=== PATIENT | female | born 1930 | race Caucasian/White ===

== ENCOUNTER 2022-01-26 15:58 | Inpatient (IN) | payer MEDICARE, OTHER ==
[~2022-01-26] VITALS: Ht 172.7 cm; Wt 66.7 kg
--- NOTE | 2022-01-26 16:19 | NUR ---
VICENTE LYNN TRIPPED ON CARPET AT [employer], C/O PAIN IN LEFT GROIN AREA UPPER FEMUR AREA AT THIS TIME SCALE OF 8 OUT OF 10
--- NOTE | 2022-01-26 16:22 | NUR ---
IV SITE L AC PATENT FLUSHING WELL INTACT
[2022-01-26] MEDS ORDERED: IBUPROFEN 600 MG TABLET ONE (16:29)
[2022-01-26] MEDS ORDERED: IBUPROFEN 600 MG TABLET PO ONE (16:30)
--- NOTE | 2022-01-26 16:31 | NUR ---
SWALLOWING WELL NO ASPIRATION NOTED
[2022-01-26] MEDS ORDERED: IV NS 0.9% 1,000 ML BAG IV ONE (19:00)
[2022-01-26 19:11] LABS: CALCIUM, SERUM 8.7 mg/dL (8.5-10.1); CREATININE 1.2 mg/dL (0.6-1.3); POTASSIUM 3.7 mmol/L (3.5-5.1)
--- NOTE | 2022-01-26 19:12 | NUR ---
CALLED [facility] [phone] [address] KATE[address]
--- NOTE | 2022-01-26 19:56 | NUR ---
COVID ANTIGEN AND MRSA SWAB COLLECTED AND SENT TO LAB
[2022-01-26] MEDS ORDERED: IOHEXOL-350 100 ML VIAL IV ONE (20:13)
[2022-01-26] MEDS ORDERED: CT SWABBABLE VALVE TRANS SET 1 EA INFUS.SET MC ONE (20:13)
[2022-01-26] MEDS ORDERED: IV NS 0.9% 250 ML IV ONE (20:13)
[2022-01-26 20:18] LABS: BASOPHILS % (AUTO) 0.2 % (0.0-2.0); EOSINOPHILS % (AUTO) 0.5 % (0.0-6.0); HEMATOCRIT 36 % (33-45); HEMOGLOBIN 11.8 g/dL (11.5-14.8); LYMPHOCYTES # (AUTO) 0.9 K/uL (0.8-4.8); MEAN CORPUSCULAR HGB CONC 33 g/dl (31.0-36.0); MEAN CORPUSCULAR VOLUME 92 fL (82-100); MONOCYTES # (AUTO) 0.5 K/uL (0.1-1.30); MONOCYTES % (AUTO) 5.7 % (2.0-12.0); NEUTROPHILS # (AUTO) 6.9 K/uL (1.8-8.9); NEUTROPHILS % (AUTO) 82.6 % (43.0-81.0); PLATELET COUNT (AUTO) 173 K/uL (150-450); RED BLOOD CELL COUNT(AUTO) 3.91 MIL/uL (4.0-5.2); WHITE BLOOD COUNT (AUTO) 8.4 K/uL (4.3-11.0)
[2022-01-26] MEDS ORDERED: ONDANSETRON HCL/PF - ER 4 MG/2 ML VIAL IV ONE (20:30)
--- NOTE | 2022-01-26 20:30 | NUR ---
URINE OUTPUT 250ML VIA UROSTOMY
[2022-01-26] MEDS ORDERED: ONDANSETRON HCL/PF 4 MG/2 ML VIAL ONE (20:32)
--- NOTE | 2022-01-26 20:45 | NUR ---
PT TAKEN TO CT VIA GURNEY. RAC #18G S/L INTACT AND FLUSHING WELL LAC#20G DISLODGE NO ACTIVE BLEEDING NOTED.
--- NOTE | 2022-01-26 20:59 | NUR ---
PT RETURNED TO ER BED [address]
--- NOTE | 2022-01-26 21:59 | NUR ---
[facility] CALLED FOR HIGHER LEVEL OF CARE. [facility] FA[facility]ED.
--- NOTE | 2022-01-26 22:25 | NUR ---
CALLED LAB TO F/U WITH COVID ANTIGEN RESULT
--- NOTE | 2022-01-26 22:32 | NUR ---
DECLAN OLIV[facility] CALLED FOR HIGHER LEVEL OF CARE. SPOKE WITH NYA. [facility] FAXED.
--- NOTE | 2022-01-26 22:50 | NUR ---
COVID ANTIGEN SWAB COLLECTED AN DSENT TO LAB
[2022-01-26] MEDS ORDERED: MORPHINE SULFATE INJ 2 MG/ML DISP.SYRIN IV PRN (23:30)
[2022-01-26] MEDS ORDERED: TEMAZEPAM 15 MG CAPSULE PO PRN (23:30)
[2022-01-26] MEDS ORDERED: IV NS 0.9% 1,000 ML IV PRN (23:30)
[2022-01-26] MEDS ORDERED: Z GUARD REMEDY 4 OZ OINT TP PRN (23:30)
[2022-01-26] MEDS ORDERED: MAG HYDROX/AL HYDROX/SIMETH 30 ML UDC PO PRN (23:30)
[2022-01-26] MEDS ORDERED: MAGNESIUM HYDROXIDE 30 ML UDC PO PRN (23:30)
[2022-01-26] MEDS ORDERED: ONDANSETRON HCL/PF 4 MG/2 ML VIAL IVP PRN (23:30)
[2022-01-26] MEDS ORDERED: HYDROCODONE/APAP 5/325MG TABLET PO PRN (23:30)
--- NOTE | 2022-01-27 00:58 | NUR ---
URINE COLLECTED AND SENT TO LAB
--- NOTE | 2022-01-27 01:07 | NUR ---
REPORT GIVEN TO PRESTON AUGUSTE RN FOR BEN
--- NOTE | 2022-01-27 01:26 | NUR ---
RN RECEIVING NOTE PATIENT ARRIVED TO UNIT VIA GURNEY AND WAS TRANSFERRED TO BED BY STAFF. PATIENT IS A/OX4. NO S/S OF DISTRESS, BREATHING WITHOUT DIFFICULTY ON ROOM AIR. RAC #18 & L-HAND #20 INTACT AND PATENT. SAFETY MEASURES IN PLACE: BED LOCKED IN LOWEST POSITION, RAILS UP X2, CALL VASQUEZ WITHIN REACH. PATIENT WAS ORIENTED TO THE UNIT. SHE WAS GIVEN CALL-VASQUEZ AND INSTRUCTED ON ITS USE. ALL BELONGINGS ACCOUNTED FOR, LOGGED INTO SHEET, AND PLACED IN CHART. NO PAIN NOTED. VS WNL. PATIENT IS STABLE; WILL CONTINUE TO MONITOR.
--- NOTE | 2022-01-27 01:37 | NUR ---
PT TRANSFERRED TO [facility]. VSS. ALL BELONGINGS WITH PT .
[2022-01-27 01:52] LABS: BILIRUBIN,URINE NEGATIVE (NEGATIVE); COLOR,URINE YELLOW (YELLOW); LEUKOCYTE ESTERASE ,URINE TRACE (NEGATIVE); NITRITE, URINE POSITIVE (NEGATIVE); PROTEIN,URINE NEGATIVE (NEGATIVE); UGLUCOSE NEGATIVE (NEGATIVE); UROBILINOGEN,URINE 0.2 EU/dL (0.2)
[2022-01-27 02:00] LABS: RBC,URINE 0-2 /HPF (0-2); WBC,URINE 0-2 /HPF (0-3)
[2022-01-27 02:01] LABS: BACTERIA,URINE Few /HPF (None Seen); SQUAMOUS EPITHELIAL CELL,UR Few /HPF (None Seen)
[2022-01-27 03:40] VITALS: BP 170/87
--- NOTE | 2022-01-27 03:45 | NUR ---
RN NOTE PATIENT WANTS TO BE DNR/DNI. PATIENT STATED HER SON, ALETHEA WILDER, HAS "THE FORMS". I WILL FOLLOW UP WITH THE SON BY PHONE IN THE A.M. TO SEE IF SON CAN BRING THEM TO THE HOSPITAL. PATIENT STABLE; WILL CONTINUE TO MONITOR PATIENT.
--- NOTE | 2022-01-27 06:46 | NUR ---
RN CLOSING NOTE PATIENT ASLEEP IN BED. A/OX4. NO S/S OF DISTRESS, BREATHING WITHOUT DIFFICULTY ON ROOM AIR. RAC #18 SL INTACT AND PATENT; L-HAND #20 W/ NS 75ML/HR. SAFETY MEASURES IN PLACE: BED LOCKED AND AT LOWEST POSITION, RAILS UP X2, CALL VASQUEZ WITHIN REACH. WILL ENDORSE TO NEXT SHIFT FOR BEN.
--- NOTE | 2022-01-27 06:51 | NUR ---
RN NOTE CALLED PATIENT'S SON, JORGE WILDER (PER PATIENT'S REQUEST) @ [phone]. SON DID NOT IRONER OR PRESSER, SO MESSAGE WAS LEFT W/ UNIT CALL-BACK # [phone]. PATIENT HAS A WISH TO BE DNR/DNI. SHE HAS AN ADVANCE DIRECTIVE, BUT HER SON HAS THE DOCUMENTATION. A MESSAGE WAS LEFT TO BRING THE DOCUMENTATION TO THE HOSPITAL. PATIENT STABLE; WILL CONTINUE TO MONITOR.
--- NOTE | 2022-01-27 07:06 | NUR ---
RN NOTE PATIENT'S SON CONTACTED UNIT. CORRECT #s ARE FOLLOWS: CELL) [phone] HOME) [phone] ALETHEA WILDER, SON, WILL BE COMING BY SOMETIME TODAY TO DROP OFF ADVANCE DIRECTIVE PAPERWORK AND VISIT PATIENT.
--- NOTE | 2022-01-27 07:20 | NUR ---
RN NOTE RECEIVED PATIENT IN BED RESTING ALERT ORIENTED X4 VERBALLY RESPONSIVE ON ROOM AIR O2:95%, IV SITE IS ON LEFT HAND INTACT PATENT PATENT HAS UROSTOMY AND CONTIENT TO BOWEL,SAFETY MEASURE IMPLEMENT BED IN LOW POSITON AND LOCKED, CALL LIGHT WITHIN REACH CONTINUE TO MONITOR.
[2022-01-27 07:23] LABS: BASOPHILS % (AUTO) 0.4 % (0.0-2.0); EOSINOPHILS % (AUTO) 2.4 % (0.0-6.0); HEMATOCRIT 32 % (33-45); HEMOGLOBIN 10.6 g/dL (11.5-14.8); LYMPHOCYTES % (AUTO) 21.5 % (20.0-44.0); MEAN CORPUSCULAR HGB CONC 33 g/dl (31.0-36.0); MEAN CORPUSCULAR VOLUME 92 fL (82-100); MONOCYTES # (AUTO) 0.5 K/uL (0.1-1.30); MONOCYTES % (AUTO) 11.6 % (2.0-12.0); NEUTROPHILS # (AUTO) 2.9 K/uL (1.8-8.9); NEUTROPHILS % (AUTO) 64.1 % (43.0-81.0); PLATELET COUNT (AUTO) 147 K/uL (150-450); RED BLOOD CELL COUNT(AUTO) 3.51 MIL/uL (4.0-5.2); WHITE BLOOD COUNT (AUTO) 4.5 K/uL (4.3-11.0)
[2022-01-27 07:38] LABS: CALCIUM, SERUM 8.1 mg/dL (8.5-10.1); CARBON DIOXIDE 25 mmol/L (21-32); CHLORIDE 110 mmol/L (98-107); CREATININE 1.1 mg/dL (0.6-1.3); GLUCOSE 106 mg/dL (74-106); MAGNESIUM 1.9 mg/dL (1.8-2.4); PHOSPHORUS 2.8 mg/dL (2.5-4.9); POTASSIUM 3.7 mmol/L (3.5-5.1); SODIUM SERUM 142 mmol/L (136-145); UREA NITROGEN, BLOOD 16 mg/dL (7-18)
[2022-01-27] MEDS: PANTOPRAZOLE 40 MG TABLET.DR PO SCH (07:44)
[2022-01-27 07:50] LABS: THYROID STIMULATING HORMONE 2.349 uIU/mL (0.358-3.74)
[2022-01-27] MEDS: METOPROLOL TARTRATE 50 MG TABLET PO SCH ×2 (09:09→20:58)
[2022-01-27] MEDS ORDERED: MECL-182 PO (09:47)
[2022-01-27] MEDS ORDERED: ATOR10TA PO (09:47)
[2022-01-27 10:13] LABS: BILIRUBIN,DIRECT 0.2 mg/dL (0.0-0.2); BILIRUBIN,TOTAL 0.6 mg/dL (0.2-1.0); TOTAL PROTEIN, SERUM 6.3 g/dL (6.4-8.2)
--- NOTE | 2022-01-27 19:18 | NUR ---
RN NOTE PATIENT REMAINS ON ALERT ORIENTED X4 ON 2L OXYGEN VIA NASAL CANNULA,NO SOB NOT ACUTE DISTRESS NOTED ALL DUE MEDS GIVEN MD ORDERED,KEPT CALL LIGHT WITHIN REACH ALL NEEDS MET ENDORSE NEXT COMING SHIFT FOR CONTINUATION OF CARE.
--- NOTE | 2022-01-27 19:30 | NUR ---
PATIENT RECEIVED AWAKE IN BED, COMFORTABLY WATCHING TV. A/OX4. NO S/S OF DISTRESS, BREATHING WITHOUT DIFFICULTY ON ROOM AIR. RAC #18 SL INTACT AND PATENT; L-HAND #20 INTACT AND PATENT. SAFETY MEASURES IN PLACE. BED IN LOWEST AND LOCKED POSITION, HEAD OF BED SLIGHTLY ELEVATED, SIDE RAILS UP X2, CALL LIGHT WITHIN REACH, WILL CONTINUE PLAN OF CARE.
[2022-01-28] MEDS: ACETAMINOPHEN 325 MG TABLET PO PRN ×2 (04:11→19:56)
--- NOTE | 2022-01-28 06:50 | NUR ---
PATIENT ASLEEP IN BED BUT EASILY AWAKENS. A/OX4. NO S/S OF DISTRESS, BREATHING WITHOUT DIFFICULTY ON ROOM AIR. RAC #18 SL INTACT AND PATENT; L-HAND #[address] ML REQUESTED. DUE MEDS AND PRN MEDS GIVEN ORDERED AND NEEDED. SAFETY MEASURES MAINTAINED. BED IN LOWEST AND LOCKED POSITION, HEAD OF BED SLIGHTLY ELEVATED, SIDE RAILS UP X2, CALL LIGHT WITHIN REACH, WILL ENDORSE TO NEXT NURSE ON DUTY FOR CONTINUITY OF CARE. Addendum: 01/28/22 at 0651 by RYLAND SOLANO RN ML NOT REQUESTED
[2022-01-28] MEDS: PANTOPRAZOLE 40 MG TABLET.DR PO SCH (07:38)
--- NOTE | 2022-01-28 07:40 | NUR ---
RN NOTE RECEIVED PATIENT IN BED RESTING ALERT ORIENTED X4 VERBALLY RESPONSIVE ON ROOM AIR O2:96%, IV SITE IS ON LEFT HAND INTACT PATENT PATENT HAS UROSTOMY AND CONTIENT TO BOWEL,SAFETY MEASURE IMPLEMENT BED IN LOW POSITON AND LOCKED, CALL LIGHT WITHIN REACH CONTINUE TO MONITOR.
[2022-01-28] MEDS: METOPROLOL TARTRATE 50 MG TABLET PO SCH ×2 (09:04→20:00)
--- NOTE | 2022-01-28 18:40 | NUR ---
RN NOTE PATIENT REMAINS ALERT ORIENTED X4 VERBALLY RESPONSE,NO SOB NOT ACUTE DISTRESS NOTED,ON ROOM AIR,KEPT CLEAN AND DRY ALL THE TIME,KEPT COMFORTABLE,ALL DUE MEDS GIVEN MD ORDERED,ENDORSE NEXT COMING SHIFT FOR CONTINUATION OF CARE.
--- NOTE | 2022-01-28 19:23 | NUR ---
MS RN OPENING NOTES RECEIVED PATIENT AWAKE IN BED. A/OX4 ABLE TO MAKE NEEDS KNOWN, NO S/S OF DISTRESS, BREATHING EVEN AND UNLABORED ON ROOM AIR. WITH L-HAND #[address], INTACT, PATENT AND FLUSHING WELL, WITH UROSTOMY IN PLACE WITH YELLOWISH COLORED URINE, SAFETY MEASURES PROVIDED, BED IN LOWEST AND LOCKED POSITION, HEAD OF BED SLIGHTLY ELEVATED, SIDE RAILS UP X2, CALL LIGHT WITHIN REACH, WILL CONTINUE TO MONITOR THROUGHOUT THE SHIFT.
[2022-01-29 04:00] VITALS: BP 138/72
--- NOTE | 2022-01-29 06:45 | NUR ---
MS RN CLOSING NOTES NO SIGNIFICANT CHANGES THROUGHOUT THE SHIFT, PATIENT AWAKE IN BED. A/OX4 ABLE TO MAKE NEEDS KNOWN, NO S/S OF DISTRESS, BREATHING EVEN AND UNLABORED ON ROOM AIR. WITH L-HAND #20 G INTACT, PATENT AND FLUSHING WELL, WITH UROSTOMY IN PLACE WITH YELLOWISH COLORED URINE, ALL DUE MEDS GIVEN, KEPT DRY AND CLEAN, SAFETY MEASURES PROVIDED, BED IN LOWEST AND LOCKED POSITION, HEAD OF BED SLIGHTLY ELEVATED, SIDE RAILS UP X2, CALL LIGHT WITHIN REACH, WILL ENDORSE TO AM SHIFT NURSE FOR CONTINUITY OF CARE.
--- NOTE | 2022-01-29 07:20 | NUR ---
MS RN OPENING NOTE RECEIVED PATIENT AWAKE IN BED.PATIENT ALERT AND ORIENTED X4. ABLE TO MAKE NEEDS KNOWN, NO SIGNS OR SYMPTOMS OF PAIN OR DISCOMFORT. PATIENT HAS L-HAND #[address], INTACT, PATENT AND FLUSHING WELL, UROSTOMY IN PLACE WITH YELLOW COLOR URINE OUTPUT. ALL SAFETY MEASURES IN PLACE. BED IN LOWEST AND LOCKED POSITION, SIDE RAILS UP X2, CALL LIGHT WITHIN REACH. BEDSIDE TABLE NEXT TO PATIENT.BED ALARM ON
[2022-01-29] MEDS: ACETAMINOPHEN 325 MG TABLET PO PRN ×2 (08:26→19:50)
[2022-01-29 09:00] VITALS: BP 104/62
[2022-01-29] MEDS: METOPROLOL TARTRATE 50 MG TABLET PO SCH (09:00)
[2022-01-29] MEDS: PANTOPRAZOLE 40 MG TABLET.DR PO SCH (09:58)
--- NOTE | 2022-01-29 10:00 | NUR ---
PROVIDED UPDATES TO PATIENT'S SON
[2022-01-29 11:08] LABS: BASOPHILS % (AUTO) 0.2 % (0.0-2.0); EOSINOPHILS % (AUTO) 3.3 % (0.0-6.0); HEMATOCRIT 32 % (33-45); HEMOGLOBIN 10.6 g/dL (11.5-14.8); LYMPHOCYTES # (AUTO) 1.1 K/uL (0.8-4.8); LYMPHOCYTES % (AUTO) 20.6 % (20.0-44.0); MEAN CORPUSCULAR HGB CONC 33 g/dl (31.0-36.0); MEAN CORPUSCULAR VOLUME 92 fL (82-100); MONOCYTES # (AUTO) 0.5 K/uL (0.1-1.30); NEUTROPHILS # (AUTO) 3.4 K/uL (1.8-8.9); NEUTROPHILS % (AUTO) 65.9 % (43.0-81.0); PLATELET COUNT (AUTO) 154 K/uL (150-450); RED BLOOD CELL COUNT(AUTO) 3.48 MIL/uL (4.0-5.2); WHITE BLOOD COUNT (AUTO) 5.1 K/uL (4.3-11.0)
[2022-01-29] MEDS ORDERED: ENOXAPARIN SODIUM 40 MG/0.4 ML DISP.SYRIN SQ SCH (12:00)
--- NOTE | 2022-01-29 13:30 | NUR ---
RN NOTE EDUCATED PATIENT ON [facility] BENEFITS AND RISKS. PATIENT AGREED TO TAKE IT.
--- NOTE | 2022-01-29 17:30 | NUR ---
RN NOTE CALLED [facility] TO GIVE REPORT BUT SAID THEY WOULD CALL BACK DUE TO NURSE BEING UNAVAILABLE AT THIS TIME.
--- NOTE | 2022-01-29 19:35 | NUR ---
MS RN CLOSING NOTE PATIENT AWAKE IN BED, ALERT AND ORIENTED X4. ALL NEEDS MET. AND TYLENOL PRN MEDICATIONS WERE GIVEN DUE TO PATIENT HAVING HEADACHE. PATIENT ON ROOM AIR TOLERATING AT 95%. NO COMPLAINTS OF PAIN OR DISCOMFORT. PATIENT HAS L-HAND #[address], INTACT, PATENT AND FLUSHING WELL, UROSTOMY IN PLACE WITH YELLOW COLOR URINE OUTPUT. WAITING FOR DISCHARGE.ENDORSED TO FRYER LINE HELPER RN. ALL SAFETY MEASURES IN PLACE. BED IN LOWEST AND LOCKED POSITION, SIDE RAILS UP X2, CALL LIGHT WITHIN REACH. BEDSIDE TABLE NEXT TO PATIENT.BED ALARM ON
--- NOTE | 2022-01-29 20:22 | NUR ---
DC NOTE REPORT [facility] PT TO BE PLACED IN THE 3RD FLOOR ROOM 323. PT DC'D IN STABLE CONDITION. DC INSTRUCTIONS PROVIDED TO PT; PT VERBALIZED UNDERSTANDING. ALL PAPERWORKS SIGNED AND COMPLETED. ALL BELONGINGS SENT WITH PT. PT LEFT UNIT IN STABLE CONDITION VIA [facility].
== END 2022-01-30 03:04 | DRG 536 ==
LOC: ER 18:34 → MEDSG1 01-27 00:40
PROVIDERS: ADMIT Nurse Practitioner Acute Care; ATTEND Nurse Practitioner Acute Care
DX: S32.810A Multiple fractures of pelvis with stable disruption of pelvic ring, initial encounter for closed fracture (principal); J98.11 Atelectasis; W01.0XXA Fall on same level from slipping, tripping and stumbling without subsequent striking against object, initial encounter; I71.22 Aneurysm of the aortic arch, without rupture; Y92.512 Supermarket, store or market as the place of occurrence of the external cause; Z20.822 Contact with and (suspected) exposure to COVID-19; E78.00 Pure hypercholesterolemia, unspecified; Z85.51 Personal history of malignant neoplasm of bladder; Z90.6 Acquired absence of other parts of urinary tract; Z98.890 Other specified postprocedural states; Z79.899 Other long term (current) drug therapy; E78.5 Hyperlipidemia, unspecified; R42 Dizziness and giddiness; R79.89 Other specified abnormal findings of blood chemistry; E04.1 Nontoxic single thyroid nodule; I71.23 Aneurysm of the descending thoracic aorta, without rupture; I70.0 Atherosclerosis of aorta; K57.30 Diverticulosis of large intestine without perforation or abscess without bleeding; Z88.0 Allergy status to penicillin
CPT/HCPCS: 36415; 71045-TC; 72190-TC; 73700-TC; 76536-TC; 80048-TC; 80076-TC; 81001; 82728-TC; 83540-TC; 83735-TC; 84100-TC; 84439-TC; 84443-TC; 85025-TC; 85730-TC; 87081-TC; 87086-TC; 94799-TC; 97110-TC; 97530-TC; C9803; G0378; J1650; J2405; J7030; J7050; Q9967